=== PATIENT | female | born 1960 | race Caucasian/White ===

== ENCOUNTER 2019-02-08 14:14 | Outpatient (CLI) | payer BC ==
[~2019-02-08 14:14] MED LIST: Magnevist 469MG/ML 20 ML VIAL ONE
--- NOTE | 2019-02-08 16:07 | MRI ---
BRAIN MRI WITH AND WITHOUT CONTRAST: 02/08/19 COMPARISON: None. HISTORY: Occlusion/stenosis of the posterior cerebral artery, numbness of right body with tingling in right fo rearm and right hand. TECHNIQUE: Multiplanar and multisequence MR imaging of the brain is obtained with and without contrast. FINDINGS: The diffusion weighted imaging demonstrates no evidence for acute infarction in the axial gradient ec ho imaging demonstrates no evidence for intracranial hemorrhage. The visualized paranasal sinuses/mastoid air cells demonstrates normal signal intensity. Arterial anshu w voids at the axial level of the skull base appear unremarkable on the T2 weighted imaging. The postcontrast imaging demonstrates no abnormal enhancement within the brain parenchyma. No midline shift or mass effect. No ventricular enlargement. No abnormal white matter signal. Regiona l bone marrow signal intensity appears within normal limits. IMPRESSION: Unremarkable contrast enhanced brain MRI. POS: [facility]
== END 2019-02-08 14:15 | disposition home or self-care (01) ==
LOC: BICMRI 14:14
PROVIDERS: ATTEND Psychiatry & Neurology Neurology
DX: I66.29 Occlusion and stenosis of unspecified posterior cerebral artery (principal)
CPT/HCPCS: 70553; 82565; A9579

== ENCOUNTER 2019-07-19 13:02 | Inpatient (IN) | payer BC ==
[~2019-07-19 13:02] MED LIST changes: +Heparin 1,000 UNITS/ML VIAL ONE; -Magnevist 469MG/ML 20 ML VIAL ONE
[2019-07-19] MEDS ORDERED: Acetaminophen 500 MG TAB ONE (13:52)
[2019-07-19] MEDS ORDERED: Morphine 4 MG/ML VIAL ONE (13:52)
[2019-07-19] MEDS ORDERED: Vancomycin 1 GM/200 ML BAG ONE (13:52)
[2019-07-19] MEDS ORDERED: Cefepime 2 GM VIAL ONE (13:52)
[2019-07-19 13:59] LABS: #Basophils 0.1 thou/uL (0.0-0.2); #Lymphocytes 0.6 thou/uL (1.20-3.40); #Monocytes 0.3 thou/uL (0.11-0.59); #Neutrophils 10.8 thou/uL (1.40-6.50); %Eosinophils 0.1 % (0.0-10.0); %Lymphocytes 5.2 % (21.0-51.0); %Monocytes 2.5 % (0.0-10.0); %Neutrophils 91.2 % (42.0-75.0); Hemoglobin 15.7 g/dL (12.0-16.0); Mean Corpuscular Hemoglobin 30.1 pg (27.0-31.0); Mean Corpuscular Volume 94.1 fL (78.0-98.0); Mean Platelet Volume 8.9 fL (7.4-10.4); Platelet Count 137 thou/uL (130-400); RBC Distribution Width 11.9 % (11.5-14.5); Red Blood Cell (RBC) Count 5.21 mill/uL (4.20-5.40); White Blood Cell (WBC) Count 11.9 thou/uL (4.8-10.8)
[2019-07-19 14:22] LABS: ALT (SGPT) 70 U/L (8-55); AST (SGOT) 31 U/L (5-34); Albumin 4.1 g/dL (3.5-5.0); Alkaline Phosphatase 138 U/L (40-110); Anion Gap 18 mmol/L (10-20); BUN (Urea Nitrogen) 12 mg/dL (9.8-20.1); Bilirubin, Total 1.3 mg/dL (0.2-1.2); Calc. Creatinine Clearance 0 mL/min (70-130); Calcium 9.6 mg/dL (7.8-10.44); Carbon Dioxide 24 mmol/L (22-29); Chloride 96 mmol/L (98-107); Estimated GFR-MDRD 67; Globulin 3.4 g/dL (2.4-3.5); Glucose 251 mg/dL (70-105); Potassium 3.5 mmol/L (3.5-5.1); Protein, Total 7.5 g/dL (6.0-8.3); Sodium 134 mmol/L (136-145)
--- NOTE | 2019-07-19 14:31 | ULT ---
Exam: Left upper 70 venous ultrasound with Doppler HISTORY: Swelling and erythema. COMPARISON: None TECHNIQUE: Grayscale, color flow, Doppler imaging and spectral waveform analysis the left upper extre mity venous system FINDINGS: There is compressibility and flow in the internal jugular vein There is flow in the subclavian vein There is compressibility and flow in the axillary vein, brachial vein, basilic vein, cephalic vein, r adial vein and ulnar vein. There is soft tissue edema in the distal forearm. IMPRESSION: 1. No evidence of thrombus in the left upper extremity venous system 2. Soft tissue edema
[2019-07-19] MEDS ORDERED: HumaLOG 300 UNITS/3 ML VIAL SC PRN ×2 (15:48→16:40)
[2019-07-19] MEDS ORDERED: Dextrose 50% Abboject 50 ML SYRINGE SLOW IVP PRN (15:48)
[2019-07-19] MEDS ORDERED: Dextrose 5% in Water 1,000 ML IV PRN (15:48)
[2019-07-19] MEDS ORDERED: Ondansetron PF 4 MG/2 ML Vial IVP PRN (15:48)
[2019-07-19] MEDS ORDERED: Bisacodyl 5 MG TAB PO PRN (15:48)
[2019-07-19] MEDS ORDERED: Vancomycin 1 GM in Premix Bag 1 BAG IVPB SCH (16:00)
[2019-07-19] MEDS ORDERED: Senokot S 8.6-50 MG TAB PO PRN (16:40)
--- NOTE | 2019-07-19 17:00 | RAD ---
RIGHT ANKLE THREE VIEWS: 07/19/19 HISTORY: Swelling and fever, fall, right ankle pain. FINDINGS/IMPRESSION: The ankle mortise is maintained. No acute fracture or dislocation is seen. Degenerative changes are p resent. Soft tissue swelling is seen. POS: [facility]
[2019-07-19 17:26] LABS: Lactic Acid 1.9 mmol/L (0.5-2.2)
[2019-07-19] MEDS ORDERED: Fentanyl 100 MCG/2 ML VIAL SLOW IVP PRN (17:46)
[2019-07-19] MEDS ORDERED: Acetaminophen/Codeine 30-300mg Tablet PO PRN ×2 (17:48)
--- NOTE | 2019-07-19 17:49 | HP ---
PRIMARY CARE PHYSICIAN: Dr. Santana in [place]. CHIEF COMPLAINT: Cellulitis of the left upper extremity. HISTORY OF PRESENT ILLNESS: The patient is a 58-year-old female with a past medical history significant for left breast cancer with lymphedema, type 2 diabetes, who presents to the ER for the above complaint. The patient reports that she developed some redness and swelling to her left upper extremity approximately 3 days ago, which she recalls as Monday night. She went to see her PCP. She was started on doxycycline. Over the next several days, the arm did not improve. Despite medical therapy, she reports increased swelling, inflammation, and pain. She was febrile as well. During the course of the week, she also had mechanical fall in her bathroom and reports some right ankle pain. The patient denies any chest pain or heart palpitations. She denies any abdominal pain, nausea, vomiting, or diarrhea. She denies any dysuria. She admits to fevers. In the ER, the patient was found to have a lactic acid of 3.3. Her WBCs were 11.9. She came in febrile of 102.4, and she was tachycardic at 118. An ultrasound was performed of the left upper extremity. It was negative for DVT. The patient was started on IV fluids at 30 mg/kg, cefepime IV, vancomycin IV. She was given 1 g of Tylenol and some morphine for the pain. PAST MEDICAL HISTORY: Past medical history is significant for; 1. Left breast cancer stage IV, back in 1999 with a left breast mastectomy with subsequent lymphedema to the left upper extremity. 2. Diabetes type 2. 3. Hypertension. 4. Hypothyroidism. 5. Obstructive sleep apnea. PAST SURGICAL HISTORY: 1. Left breast mastectomy in 1999. 2. Hysterectomy. ALLERGIES: THE PATIENT REPORTS ALLERGIES TO PENICILLINS, AMOXICILLIN, CLINDAMYCIN, E-MYCIN, ERYTHROMYCIN. MEDICATIONS: 1. Metformin 500 mg p.o. b.i.d. 2. Venlafaxine 75 mg p.o. b.i.d. 3. Aspirin 81 mg p.o. daily. 4. Levothyroxine 100 mcg p.o. daily. 5. Valsartan 80 mg p.o. daily. SOCIAL HISTORY: The patient lives in [place] with her family. She denies any history of smoking, alcohol intake, or illicit drug use. She is retired. FAMILY HISTORY: Family history is noncontributory to this case. REVIEW OF SYSTEMS: All other ROS are negative unless noted in the HPI. PHYSICAL EXAMINATION: VITAL SIGNS: The patient presented to the ER of 101.3 Fahrenheit oral fever. Blood pressure 140/79, heart rate 115, respirations 20, 96% on room air. Pain scale is 8/10. CONSTITUTIONAL: The patient appears in no apparent distress. She is nontoxic. She appears comfortable. She is alert and oriented to person, place, and time. HEAD: Atraumatic, normocephalic. EYES: PERRLA. Extraocular muscles are intact. ENT: Nares are patent bilaterally. Oropharynx is clear. Uvula midline. No oral lesions. Mucous membranes are moist. NECK: Supple. Trachea is midline. No lymphadenopathy. RESPIRATORY/CHEST: Respirations are even and unlabored. Clear to auscultation bilaterally. No rhonchi, wheezes, or rales. CARDIOVASCULAR: The patient was tachycardic, regular rhythm. Heart sounds are normal. ABDOMEN: Soft, nontender, nondistended. No guarding. No peritoneal signs. BACK: Normal range of motion. No CVA tenderness. EXTREMITIES: Upper extremities; the left upper extremity was red, swollen, and warm to touch. No open lesions. No bruising. Palpable radial and ulnar pulses. Cap refill was brisk. Right upper extremity was normal. There are no open lesions. No swelling. No erythema. No bruising. Palpable radial and ulnar pulses. Cap refill is brisk. Lower extremities; right lower extremity had some bruising and swelling to the medial aspect of the right ankle. Mildly tender to touch. Palpable pedal pulses. Brisk cap refill. Right lower extremity decreased range of motion. Left lower extremity was normal exam. No bruising or swelling. No open lesions. No gross deformities. Palpable pedal pulses. Brisk cap refill. Skin intact. Full range of motion. NEURO: The patient was alert, oriented. Able to follow commands. Cranial nerves 2 through 12 intact. SKIN: Warm and dry and intact. LABORATORY DATA: Sodium 134, potassium 3.5, chloride 96, carbon dioxide was 24 , BUN 12, creatinine 0.87, GFR 67, glucose was 251. Her lactic acid was 3.3. She had some elevated LFTs. Her total bilirubin was 1.3, AST 31, ALT 70, alkaline phosphatase 138, albumin was 4.1. WBCs were 11.9, hemoglobin 15.7, hematocrit 49, platelets were 137. Ultrasound of the left upper extremity was negative for DVT. Right foot and right ankle x-rays are pending results. IMPRESSION AND PLAN: 1. Cellulitis of the left upper extremity. Admit to the telemetry floor inpatient status. Expected length of stay is at least two midnights. The patient presented tachycardic and febrile with failure on doxycycline outpatient therapy. Labs were done. Lactic acid of 3.3, white blood cells of 11.9. Ultrasound of the left upper extremity was negative for DVT. The patient was given IV fluid resuscitation 30 mL/kg in the ER and vanc and cefepime IV piggyback. We will continue vanc and cefepime broad spectrum antibiotic coverage. We will continue IV fluids at 70 mL/hr. We will consult Infectious Disease. We will order a CRP and ESR and an x-ray of the upper extremity. Blood cultures pending. 2. Sepsis, likely secondary to #1. 3. Elevated LFTs, appears mild. Have no baseline for the patient. Bilirubin was 1.3, ALT was 70, and alkaline phosphatase was 138. We will recheck those in the a.m. with a CMP. 4. Diabetes type 2. The patient reports taking metformin daily 500 mg b.i.d. We will start mild sliding scale and we will perform Accu-Cheks a.c. and h.s. 5. Lymphedema. The patient has a history of left breast cancer stage IV with mastectomy in 1999 with subsequent lymphedema of the left upper extremity. We will continue to follow. Right now, ultrasound of the arm is negative and x-rays are pending of the extremity. 6. Right ankle pain. The patient reported mechanical fall in her bathroom several days ago. She has bruising to the right ankle and she is nonweightbearing at this time. X-rays of the right foot and ankle are pending. We will consult Physical Therapy. 7. Lovenox for DVT prophylaxis. Pepcid for GI prophylaxis. The patient is a full code. The MPOA is Sienna Campbell, her daughter and her number is [phone]. Job ID: [id number] [facility]
[2019-07-19] MEDS: Sodium Chloride 0.9% 1,000 ML IV SCH (18:37)
[2019-07-19] MEDS: traMADol HCl 50 MG TAB PO PRN (18:38)
[2019-07-19] MEDS: metFORMIN 500 MG TAB PO SCH (18:38)
--- NOTE | 2019-07-19 19:11 | PDOC.EVN ---
Event Note - Event Note Event Note: I reviewed the chart. I also saw the patient and discussed plan of care with MELANIE Mathew Mccurdy. Briefly, 58 yo lady with PMHx L breast cancer s/p surgery presenting with LUE erythema x 1 week, was treated with doxycycline last 3 days. Pt was febrile in ER. Phys exam: S1, S2, reg. Lungs CTA. LUE cellulitis. A/P: 1. Sepsis 2. Cellulitis 3. DM2 Continue cefepime./vanc Consult ID Pain meds Insulin sliding scale Agree with H&P and plan of care as documented by MELANIE.
--- NOTE | 2019-07-19 19:12 | RAD ---
RIGHT FOOT THREE VIEWS: 07/19/19 HISTORY: Fall with pain in right leg. There are arthritic changes of the talonavicular joint and ankle joint. Deformity to the calcaneus is felt to be related to an old injury. I do not see any definite acute fracture line. Bones appear sli ghtly demineralized. There are arthritic changes of the great toe. No fractures are appreciated. IMPRESSION: Chronic changes. No acute process. POS: [facility]
[2019-07-19] MEDS: Morphine 2 MG/ML SYRINGE SLOW IVP PRN ×2 (19:48→23:26)
[2019-07-19] MEDS: Acetaminophen 325 MG TAB PO PRN (19:52)
[2019-07-19] MEDS: Famotidine 20 MG TAB PO SCH (21:00)
[2019-07-20] MEDS: traMADol HCl 50 MG TAB PO PRN ×3 (01:57→15:08)
[2019-07-20] MEDS: Cefepime 2 GM in Sodium Chloride 0.9% 100 ML IVPB SCH ×2 (01:59→14:47)
[2019-07-20] MEDS ORDERED: Vancomycin 1.5 GRAM/300 ML BAG 1.5 GM in Premix Bag 1 BAG IVPB SCH (03:00)
[2019-07-20] MEDS: Morphine 2 MG/ML SYRINGE SLOW IVP PRN ×2 (04:31→20:37)
[2019-07-20 05:01] LABS: Band 9 % (5-11); Hemoglobin 12.2 g/dL (12.0-16.0); Lymphocytes 5 % (21-51); MDiff Complete? YES; Mean Corpuscular HGB CONC 33.8 g/dL (32.0-36.0); Mean Corpuscular Hemoglobin 31.4 pg (27.0-31.0); Mean Corpuscular Volume 92.8 fL (78.0-98.0); Mean Platelet Volume 8.9 fL (7.4-10.4); Monocytes 5 % (0-10); Neutrophil 81 % (42-75); Platelet Count 115 thou/uL (130-400); Platelet Morphology Comment Appears Decreased; RBC Distribution Width 11.8 % (11.5-14.5); RBC Morphology Normal; Red Blood Cell (RBC) Count 3.89 mill/uL (4.20-5.40); White Blood Cell (WBC) Count 14.6 thou/uL (4.8-10.8)
[2019-07-20 05:12] LABS: ALT (SGPT) 47 U/L (8-55); AST (SGOT) 26 U/L (5-34); Albumin 3.1 g/dL (3.5-5.0); Alkaline Phosphatase 130 U/L (40-110); Anion Gap 16 mmol/L (10-20); BUN (Urea Nitrogen) 14 mg/dL (9.8-20.1); Calc. Creatinine Clearance 114 mL/min (70-130); Calcium 7.8 mg/dL (7.8-10.44); Chloride 102 mmol/L (98-107); Estimated GFR-MDRD 72; Globulin 2.7 g/dL (2.4-3.5); Glucose 170 mg/dL (70-105); Potassium 3.8 mmol/L (3.5-5.1); Protein, Total 5.8 g/dL (6.0-8.3); Sodium 132 mmol/L (136-145)
[2019-07-20 05:29] LABS: Carbon Dioxide 18 mmol/L (22-29)
[2019-07-20] MEDS: Levothyroxine Sodium 100 MCG TAB PO SCH (05:30)
[2019-07-20] MEDS: metFORMIN 500 MG TAB PO SCH ×2 (07:57→17:06)
[2019-07-20] MEDS: Famotidine 20 MG TAB PO SCH ×2 (07:57→20:37)
[2019-07-20] MEDS: Valsartan 80 MG TAB PO SCH (07:57)
[2019-07-20] MEDS: Venlafaxine HCl XR 75 MG CAP PO SCH (07:57)
[2019-07-20] MEDS: Aspirin 81 mg Enteric Coated Tablet PO SCH (07:58)
[2019-07-20] MEDS: Enoxaparin Sodium 40 MG/0.4 ML SYRINGE SC SCH (07:59)
[2019-07-20] MEDS: Acetaminophen 325 MG TAB PO PRN ×2 (08:12→15:13)
[2019-07-20] MEDS: Sodium Chloride 0.9% 1,000 ML IV SCH (11:54)
[2019-07-20 12:49] VITALS: BMI 35.3
[2019-07-20] MEDS ORDERED: cefTRIAXone\\ROCEPHIN 1 GM in Sodium Chloride 0.9% 100 ML IVPB SCH (15:00)
[2019-07-20] MEDS: cefTRIAXone\\ROCEPHIN 2 GM in Sodium Chloride 0.9% 100 ML IVPB SCH (15:13)
--- NOTE | 2019-07-20 16:00 | CON ---
DATE OF CONSULTATION: REASON FOR CONSULTATION: Cellulitis and bacteremia. HISTORY OF PRESENT ILLNESS: A 58-year-old with history of hypertension; type 2 diabetes; left-sided breast cancer, in remission, and has chronic lymph lymphedema, left upper extremity. The patient wears a sleeve, but for the past few months the sleeve has lost its function due to mechanical issues and she is not wearing anymore. She developed cellulitis of left upper extremity over the past few days before admission and had not taken any antimicrobials before admission other than doxycycline prescribed by her personal physician, which did not help. Initially , temperature 101.3, BP 140/79, pulse 115, and O2 saturation 96. She did not appear in distress and the exam showed erythema of left upper extremity with swelling and lymphedema, tenderness. Erythema extending from the wrist all the way to the mid arm, left side. Other findings on admission; white cell count 11.9, hemoglobin 15.7, platelets 137, and 91% neutrophils. Sodium 134, creatinine 0.87, bilirubin 1.3, ALT 70, and alkaline phosphatase 138. CRP was 30.56. Currently, Ms. Campbell is awake and alert, does not appear in distress, moderate pain in the left upper extremity. She also has pain in the right shoulder, which is quite intense with marked limitation of range of motion and pain in the right ankle which she developed within the period of this inflammatory process in the left upper extremity. No headaches. No shortness of breath, cough, or sputum production. No chest pain. No abdominal pain or diarrhea. No genitourinary symptoms. No neurological symptoms. MEDICAL HISTORY: 1. Breast cancer, in remission. 2. Hypertension. 3. Type 2 diabetes. 4. Lymphedema, left upper extremity. 5. Hypothyroidism. SURGICAL HISTORY: 1. Hysterectomy. 2. Mastectomy, left breast. 3. Tonsillectomy. ALLERGIES: AMOXICILLIN, CLINDAMYCIN, AND ERYTHROMYCIN. FAMILY HISTORY: Noncontributory. CURRENT MEDICATIONS: 1. P.r.n. medications. 2. Dulcolax. 3. Ceftriaxone. 4. Lovenox. 5. Pepcid. 6. Insulin. 7. Synthroid. 8. Glucophage. 9. Morphine. 10. Senokot. PHYSICAL EXAMINATION: VITAL SIGNS: T-max 102.6, blood pressure 113/55, pulse 109, respirations 18, and O2 saturation 96. SKIN: The area of circumferential erythema in the left upper extremity extending from the mid arm all the way to the wrist. She has erythema in the right ankle as well, and mild erythema in the right shoulder with marked limitation of range of motion. Peripheral IV access. The patient is voiding in the toilet. HEENT: Ocular movements conjugate. Oral cavity unremarkable. NECK: Supple. No jugular vein distention. Marked limitation in range of motion of right shoulder. There is lymphedema in the left upper extremity with inflammatory changes. Limitation of flexion and extension of the elbow. LUNGS: Symmetric and clear breath sounds. HEART: S1 and S2. Regular rate. No S3 or S4. ABDOMEN: Soft, not distended or tender. No ascites. No bladder distention. EXTREMITIES: Right ankle is tender markedly so with marked limitation in range of motion. The tenderness is more intense in the right lateral malleolus. There is tenderness on palpation of the right shoulder. There is lymphedema of left upper extremity. There is trace edema in the lower extremities. NEUROLOGIC: Nonfocal including cognitive function. LABORATORY DATA: Latest labs: White cell count 14.6, hemoglobin 12, and platelets 115 with 81% neutrophils. The latest chemistry with sodium 132 and creatinine 0.81. Microbiology with 2 sets of blood cultures with group B Streptococcus. IMAGING STUDIES: There is an ankle x-ray, which showed just chronic changes. ASSESSMENT: 1. Breast cancer in remission with prior left mastectomy and chronic lymphedema. 2. Cellulitis, left upper extremity with bacteremia secondary to group B Streptococcus, possible dissemination to the right ankle and the right shoulder. DISCUSSION: The main concern is that this is not just a simple case of cellulitis, but that the infection might have disseminated to the mentioned joints. We will MRI those joints and see if she will need Orthopedic Surgery consultation. Osteomyelitis is a definite possibility. This would markedly change the duration of therapy, so it is essential to rule out those possibilities. Meantime, switch her to Rocephin 2 g daily. Discontinue the remainder of antimicrobials. Job ID: [id number] [facility]
--- NOTE | 2019-07-20 18:15 | PDOC.HOSPP ---
- Subjective Encounter Date: 07/20/19 Encounter Time: 18:27 Subjective: Pt seen for followup re: sepsis. Feels better today. - Objective Vital Signs & Weight: Vital Signs (12 hours) Temp Pulse Resp BP BP BP Pulse Ox 07/20/19 15:07 99.9 F H 98 18 118/68 97 07/20/19 12:09 94/57 L 113/55 L 07/20/19 11:53 98.4 F 90 18 99/51 L 96 07/20/19 10:00 99.5 F 07/20/19 07:56 101.3 F H 109 H 18 115/60 96 Weight Admit Weight 212 lb Weight 212 lb 1.6 oz I&O: 07/19/19 07/20/19 07/21/19 06:59 06:59 06:59 Intake Total 1986 Output Total 400 Balance 1586 Result Diagrams: 07/20/19 04:35 07/20/19 04:35 Additional Labs: Accuchecks 07/20/19 07/20/19 07/20/19 17:04 11:14 06:01 POC Glucose 175 H 196 H 147 H 07/19/19 20:51 POC Glucose 226 H Labs and MARs reviewed by me EKG Reviewed by me: Yes (Tele: sinus tachycardia) Hospitalist ROS - Review of Systems Constitutional: reports: fever. denies: chills, sweats, weakness, malaise Cardiovascular: denies: chest pain, palpitations, orthopnea, paroxysmal noc. dyspnea, edema, light headedness Gastrointestinal: denies: nausea, vomiting, abdominal pain, diarrhea, constipation, melena, hematochezia Genitourinary: denies: dysuria, frequency, incontinence, hematuria, retention Skin: reports: rash Neurological: denies: weakness, numbness, incoordination, change in speech, confusion, seizures - Medication Medications: Active Medications Generic Name Dose Route Start Last Admin Trade Name Freq PRN Reason Stop Dose Admin Acetaminophen 650 mg 07/19/19 15:48 07/20/19 15:13 Tylenol PO 650 mg Q4H PRN Administration Headache/Fever/Mild Pain (1-3) Aspirin 81 mg 07/20/19 09:00 07/20/19 07:58 Ecotrin PO 81 mg DAILY ESPERANZA Administration Enoxaparin Sodium 40 mg 07/20/19 09:00 07/20/19 07:59 Lovenox SC 40 mg 0900 ESPERANZA Administration Famotidine 20 mg 07/19/19 21:00 07/20/19 07:57 Pepcid PO 20 mg BID ESPERANZA Administration Sodium Chloride 1,000 mls @ 70 mls/hr 07/19/19 16:00 07/20/19 11:54 Normal Saline 0.9% IV 1,000 mls .[id number] ESPERANZA Administration Ceftriaxone Sodium 2 gm/ 100 mls @ 200 mls/hr 07/20/19 15:00 07/20/19 15:13 Sodium Chloride IVPB 100 mls Q24HR ESPERANZA Administration Levothyroxine Sodium 100 mcg 07/20/19 06:00 07/20/19 05:30 Synthroid PO 100 mcg 0600 ESPERANZA Administration Metformin HCl 500 mg 07/19/19 17:00 07/20/19 17:06 Glucophage PO 500 mg BID-WM ESPERANZA Administration Morphine Sulfate 2 mg 07/19/19 15:47 07/20/19 04:31 Morphine SLOW IVP 2 mg Q4H PRN Administration Pain Tramadol HCl 50 mg 07/19/19 17:50 07/19/19 18:38 Ultram PO 50 mg Q6H PRN Administration Mild-Moderate Pain (1-5) Tramadol HCl 100 mg 07/19/19 17:50 07/20/19 15:08 Ultram PO 100 mg Q6H PRN Administration Moderate to Severe Pain (6-10) Valsartan 80 mg 07/20/19 09:00 07/20/19 07:57 Diovan PO 80 mg DAILY ESPERANZA Administration Venlafaxine HCl 75 mg 07/20/19 09:00 07/20/19 07:57 Effexor Xr PO 75 mg DAILY ESPERANZA Administration - Exam General - other findings: Obese Eye: anicteric sclera ENT: moist mucosa Neck: supple, symmetric, no thyromegaly, no lymphadenopathy Heart: no rubs Heart - other findings: S1, S2, reg, tachy Respiratory: CTAB, no wheezes, no rales, no ronchi Gastrointestinal: soft, non-tender, non-distended, normal bowel sounds Skin - other findings: LUE cellulitis improving Psychiatric: normal affect, normal behavior, A&O x 3 Hosp A/P (1) Sepsis Code(s): A41.9 - SEPSIS, UNSPECIFIED ORGANISM Status: Acute (2) Cellulitis Code(s): L03.90 - CELLULITIS, UNSPECIFIED Status: Acute (3) Bacteremia Code(s): R78.81 - BACTEREMIA Status: Acute (4) DM2 (diabetes mellitus, type 2) Status: Chronic (5) Hypothyroidism Code(s): E03.9 - HYPOTHYROIDISM, UNSPECIFIED Status: Chronic (6) HTN (hypertension) Code(s): I10 - ESSENTIAL (PRIMARY) HYPERTENSION Status: Chronic - Plan continue antibiotics, out of bed/ambulate Pt seen by ID service, switched to IV ceftriaxone. Continue synthroid. Await final blood cultures. Hyponatremia mild, likely asymptomatic. Continue accuchecks and change to moderate insulin sliding scale. HTN controlled.
[2019-07-21] MEDS: Sodium Chloride 0.9% 1,000 ML IV SCH ×2 (01:08→17:31)
[2019-07-21] MEDS: Morphine 2 MG/ML SYRINGE SLOW IVP PRN ×4 (01:12→20:32)
[2019-07-21] MEDS: Levothyroxine Sodium 100 MCG TAB PO SCH (05:16)
[2019-07-21 06:49] LABS: Band 23 % (5-11); Hemoglobin 11.6 g/dL (12.0-16.0); Lymphocytes 10 % (21-51); MDiff Complete? YES; Mean Corpuscular HGB CONC 33.6 g/dL (32.0-36.0); Mean Corpuscular Hemoglobin 31.3 pg (27.0-31.0); Mean Corpuscular Volume 92.9 fL (78.0-98.0); Mean Platelet Volume 8.9 fL (7.4-10.4); Monocytes 9 % (0-10); Neutrophil 58 % (42-75); Platelet Count 133 thou/uL (130-400); Platelet Morphology Comment Appears Adequate; White Blood Cell (WBC) Count 13.4 thou/uL (4.8-10.8)
[2019-07-21 06:50] LABS: Anion Gap 16 mmol/L (10-20); BUN (Urea Nitrogen) 8 mg/dL (9.8-20.1); Calc. Creatinine Clearance 138 mL/min (70-130); Calcium 8.1 mg/dL (7.8-10.44); Carbon Dioxide 21 mmol/L (22-29); Chloride 98 mmol/L (98-107); Estimated GFR-MDRD 90; Glucose 171 mg/dL (70-105); Potassium 3.2 mmol/L (3.5-5.1); Sodium 132 mmol/L (136-145)
[2019-07-21] MEDS: Valsartan 80 MG TAB PO SCH (08:05)
[2019-07-21] MEDS: metFORMIN 500 MG TAB PO SCH ×2 (08:05→17:31)
[2019-07-21] MEDS: Aspirin 81 mg Enteric Coated Tablet PO SCH (08:05)
[2019-07-21] MEDS: Venlafaxine HCl XR 75 MG CAP PO SCH (08:05)
[2019-07-21] MEDS: Enoxaparin Sodium 40 MG/0.4 ML SYRINGE SC SCH (08:05)
[2019-07-21] MEDS: Famotidine 20 MG TAB PO SCH ×2 (08:05→20:28)
[2019-07-21] MEDS: traMADol HCl 50 MG TAB PO PRN (12:25)
[2019-07-21] MEDS ORDERED: Magnevist 469MG/ML 20 ML VIAL ONE ×2 (13:16)
[2019-07-21] MEDS: cefTRIAXone\\ROCEPHIN 2 GM in Sodium Chloride 0.9% 100 ML IVPB SCH (14:59)
--- NOTE | 2019-07-21 15:14 | PDOC.HOSPP ---
- Subjective Encounter Date: 07/21/19 Encounter Time: 08:20 Subjective: Pt seen for followup re: sepsis. Feels worse than yesterday. - Objective Vital Signs & Weight: Vital Signs (12 hours) Temp Pulse Resp BP Pulse Ox 07/21/19 15:04 99.3 F 105 H 18 133/66 98 07/21/19 11:45 98.5 F 100 18 142/66 H 98 07/21/19 07:45 99.1 F 106 H 20 135/64 96 07/21/19 03:50 97 07/21/19 03:18 99.3 F 110 H 18 115/65 97 Weight Admit Weight 212 lb Weight 212 lb 9.6 oz I&O: 07/20/19 07/21/19 07/22/19 06:59 06:59 06:59 Intake Total 1986 9420 Output Total 400 1050 Balance 1586 8370 Result Diagrams: 07/21/19 06:26 07/21/19 06:26 Additional Labs: Accuchecks 07/21/19 07/21/19 07/20/19 11:58 05:41 20:53 POC Glucose 178 H 166 H 142 H 07/20/19 17:04 POC Glucose 175 H Labs and MARs reviewed by me EKG Reviewed by me: Yes (Tele: sinus tachycardia) Hospitalist ROS - Review of Systems Cardiovascular: denies: chest pain, palpitations, orthopnea, paroxysmal noc. dyspnea, edema, light headedness Gastrointestinal: denies: nausea, vomiting, abdominal pain, diarrhea, constipation, melena, hematochezia Musculoskeletal: reports: other (right ankle pain) - Medication Medications: Active Medications Generic Name Dose Route Start Last Admin Trade Name Freq PRN Reason Stop Dose Admin Acetaminophen 650 mg 07/19/19 15:48 07/20/19 15:13 Tylenol PO 650 mg Q4H PRN Administration Headache/Fever/Mild Pain (1-3) Aspirin 81 mg 07/20/19 09:00 07/21/19 08:05 Ecotrin PO 81 mg DAILY ESPERANZA Administration Enoxaparin Sodium 40 mg 07/20/19 09:00 07/21/19 08:05 Lovenox SC 40 mg 0900 ESPERANZA Administration Famotidine 20 mg 07/19/19 21:00 07/21/19 08:05 Pepcid PO 20 mg BID ESPERANZA Administration Sodium Chloride 1,000 mls @ 70 mls/hr 07/19/19 16:00 07/21/19 01:08 Normal Saline 0.9% IV 1,000 mls .[id number] ESPERANZA Administration Ceftriaxone Sodium 2 gm/ 100 mls @ 200 mls/hr 07/20/19 15:00 07/21/19 14:59 Sodium Chloride IVPB 100 mls Q24HR ESPERANZA Administration Levothyroxine Sodium 100 mcg 07/20/19 06:00 07/21/19 05:16 Synthroid PO 100 mcg 0600 ESPERANZA Administration Metformin HCl 500 mg 07/19/19 17:00 07/21/19 08:05 Glucophage PO 500 mg BID-WM ESPERANZA Administration Morphine Sulfate 2 mg 07/19/19 15:47 07/21/19 10:55 Morphine SLOW IVP 2 mg Q4H PRN Administration Pain Tramadol HCl 50 mg 07/19/19 17:50 07/19/19 18:38 Ultram PO 50 mg Q6H PRN Administration Mild-Moderate Pain (1-5) Tramadol HCl 100 mg 07/19/19 17:50 07/21/19 12:25 Ultram PO 100 mg Q6H PRN Administration Moderate to Severe Pain (6-10) Valsartan 80 mg 07/20/19 09:00 07/21/19 08:05 Diovan PO 80 mg DAILY ESPERANZA Administration Venlafaxine HCl 75 mg 07/20/19 09:00 07/21/19 08:05 Effexor Xr PO 75 mg DAILY ESPERANZA Administration - Exam General Appearance: awake alert Eye: anicteric sclera ENT: moist mucosa Neck: supple Heart: RRR Respiratory: CTAB, no wheezes Gastrointestinal: soft, non-tender Extremities: no cyanosis Psychiatric: normal affect, normal behavior Hosp A/P (1) Sepsis Code(s): A41.9 - SEPSIS, UNSPECIFIED ORGANISM Status: Acute (2) Cellulitis Code(s): L03.90 - CELLULITIS, UNSPECIFIED Status: Acute (3) Bacteremia Code(s): R78.81 - BACTEREMIA Status: Acute (4) DM2 (diabetes mellitus, type 2) Status: Chronic (5) Hypothyroidism Code(s): E03.9 - HYPOTHYROIDISM, UNSPECIFIED Status: Chronic (6) HTN (hypertension) Code(s): I10 - ESSENTIAL (PRIMARY) HYPERTENSION Status: Chronic - Plan Continue IV ceftriaxone. Pt is on synthroid. Await final blood and urine cultures. Replace potassium Continue accuchecks and change to moderate insulin sliding scale. HTN controlled.
[2019-07-21] MEDS ORDERED: Potassium Chloride 20 MEQ TAB PO SCH (15:15)
--- NOTE | 2019-07-21 16:33 | MRI ---
MR of the right ankle with and without contrast INDICATION: History of bacteremia of the right ankle with pain Contrast: 20 cc of MultiHance COMPARISON: Right ankle radiographs dated 07/19/2019 There is cellulitis involving the distal foreleg, hindfoot and dorsal foot without evidence of a drai nable fluid collection. No overt changes of osteomyelitis is evident. There is healed deformity involving the calcaneus. 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 There are chronic partial-thickne ss tears of the ATFL and PTFL . Syndesmotic ligaments appear intact. There is mild degenerative change of the medial tibiotalar joint. Sinus Tarsi appears within normal limits. The visualized flexo r and extensor tendons are normal appearing. IMPRESSION: Cellulitis of the distal right foreleg, hindfoot and dorsal foot.
--- NOTE | 2019-07-21 16:40 | MRI ---
MR of the right shoulder with and without IV contrast Indication history of bacteremia, right shoulder pain and loss of range of motion Contrast: 20 cc of MultiHance COMPARISON: None FINDINGS: Motion artifact limits image detail. There is increased joint effusion seen within the righ t AC joint with some surrounding periarticular soft tissue edema. There is a lobulated 1.5 x 1.8 cm fluid collection seen superior and slightly posterior to the AC joint suspicious for a periarticular abscess. Mild bone marrow edema is seen involving the acromial process and distal clavicle. There is a small intrasubstance low-grade partial thickness tear involving the mid supraspinatus, at the fo otprint, measuring 5 mm. No large full-thickness tear is evident. Small amount of fluid is seen in the subacromial subdeltoid bursa. There is mild surrounding cellulitis involving the superior aspect of the right shoulder joint. There is mild myositis involving portions of the right deltoid as well as the supraspinatus. No definite pathologically enlarged lymph nodes are evident. IMPRESSION: 1. Findings suspicious for septic arthritis of the right AC joint with a small periarticular abscess. There is mild surrounding myositis and cellulitis of the posterior superior right shoulder. 2. Small partial-thickness intrasubstance tear of the supraspinatus measuring up to 5 mm.
--- NOTE | 2019-07-21 23:45 | PRG ---
DATE OF SERVICE: 07/21/2019 SUBJECTIVE: Still quite a bit of pain in the right shoulder, not as much in the right ankle. No respiratory symptoms or abdominal pain. No diarrhea. OBJECTIVE: VITAL SIGNS: T-max 99.9 and she is 99.3 at the moment. BP 130/60, pulse 105, respirations 18, and O2 saturation 98. GENERAL: Does not appear in acute distress, still with marked limitation in range of motion of right shoulder. LUNGS: Symmetric clear breath sounds. HEART: S1 and S2. Regular rate. ABDOMEN: Soft, not distended or tender. EXTREMITIES: Right ankle with less erythema. LABORATORY DATA: White cell count 13.4, hemoglobin 11, platelets 133, and 23% bands. Creatinine 0.67. The ankle MRI showed just cellulitis. The shoulder MRI showed acromioclavicular joint septic arthritis with small periarticular abscess, mild surrounding myositis and cellulitis. The left upper extremity cellulitis has improved. ASSESSMENT AND DISCUSSION: Breast cancer in remission with prior mastectomy and chronic lymphedema, left upper extremity and cellulitis left upper extremity with bacteremia due to group B strep and right acromioclavicular joint infection and right ankle cellulitis, but not infection of the joint or bone. We will see how she does with antimicrobials may need I and D of the right shoulder area acromioclavicular joint depending on clinical progress. Job ID: [id number]
[2019-07-22 05:46] LABS: #Eosinphils 0.1 thou/uL (0.0-0.7); #Lymphocytes 1.1 thou/uL (1.20-3.40); #Monocytes 0.8 thou/uL (0.11-0.59); #Neutrophils 8.4 thou/uL (1.40-6.50); %Basophils 0.1 % (0.0-1.0); %Eosinophils 1.3 % (0.0-10.0); %Lymphocytes 10.1 % (21.0-51.0); %Monocytes 7.8 % (0.0-10.0); %Neutrophils 80.7 % (42.0-75.0); Hemoglobin 11.8 g/dL (12.0-16.0); Mean Corpuscular HGB CONC 32.6 g/dL (32.0-36.0); Mean Corpuscular Hemoglobin 30.9 pg (27.0-31.0); Mean Corpuscular Volume 94.8 fL (78.0-98.0); Mean Platelet Volume 8.9 fL (7.4-10.4); Platelet Count 168 thou/uL (130-400); RBC Distribution Width 11.8 % (11.5-14.5); Red Blood Cell (RBC) Count 3.82 mill/uL (4.20-5.40); White Blood Cell (WBC) Count 10.5 thou/uL (4.8-10.8)
[2019-07-22] MEDS: Levothyroxine Sodium 100 MCG TAB PO SCH (06:07)
[2019-07-22 06:09] LABS: Anion Gap 13 mmol/L (10-20); BUN (Urea Nitrogen) 6 mg/dL (9.8-20.1); Calc. Creatinine Clearance 144 mL/min (70-130); Calcium 8.4 mg/dL (7.8-10.44); Carbon Dioxide 27 mmol/L (22-29); Chloride 96 mmol/L (98-107); Estimated GFR-MDRD Greater than 90; Glucose 191 mg/dL (70-105); Sodium 133 mmol/L (136-145)
[2019-07-22 06:17] LABS: Potassium 2.9 mmol/L (3.5-5.1)
[2019-07-22] MEDS ORDERED: Potassium Chloride 20 MEQ TAB PO SCH (06:30)
[2019-07-22] MEDS: Sodium Chloride 0.9% 1,000 ML IV SCH ×2 (06:32→20:04)
[2019-07-22] MEDS: Aspirin 81 mg Enteric Coated Tablet PO SCH (07:53)
[2019-07-22] MEDS: Venlafaxine HCl XR 75 MG CAP PO SCH (07:53)
[2019-07-22] MEDS: metFORMIN 500 MG TAB PO SCH ×2 (07:53→15:50)
[2019-07-22] MEDS: Famotidine 20 MG TAB PO SCH ×2 (07:53→20:04)
[2019-07-22] MEDS: Enoxaparin Sodium 40 MG/0.4 ML SYRINGE SC SCH ×2 (07:54→16:46)
[2019-07-22] MEDS: Valsartan 80 MG TAB PO SCH (10:45)
[2019-07-22] MEDS: traMADol HCl 50 MG TAB PO PRN ×2 (10:48→17:19)
--- NOTE | 2019-07-22 14:53 | PDOC.HOSPP ---
- Subjective Encounter Date: 07/22/19 Encounter Time: 08:40 Subjective: Pt seen for followup re: sepsis. Feels better today. - Objective Vital Signs & Weight: Vital Signs (12 hours) Temp Pulse Resp BP Pulse Ox 07/22/19 10:56 98.4 F 97 20 146/81 H 96 07/22/19 08:00 98.4 F 102 H 18 133/79 95 Weight Admit Weight 212 lb Weight 212 lb 9.6 oz I&O: 07/21/19 07/22/19 07/23/19 06:59 06:59 06:59 Intake Total 9420 1640 Output Total 1050 1050 Balance 8370 590 Result Diagrams: 07/22/19 05:13 07/22/19 05:13 Additional Labs: Accuchecks 07/22/19 07/22/19 07/21/19 11:18 05:51 20:30 POC Glucose 194 H 212 H 214 H Hospitalist ROS - Review of Systems Constitutional: denies: fever, chills, sweats, weakness, malaise Cardiovascular: denies: chest pain, palpitations, orthopnea, paroxysmal noc. dyspnea, edema, light headedness Genitourinary: denies: dysuria, frequency, incontinence, hematuria, retention Skin: reports: rash - Medication Medications: Active Medications Generic Name Dose Route Start Last Admin Trade Name Freq PRN Reason Stop Dose Admin Acetaminophen 650 mg 07/19/19 15:48 07/20/19 15:13 Tylenol PO 650 mg Q4H PRN Administration Headache/Fever/Mild Pain (1-3) Aspirin 81 mg 07/20/19 09:00 07/22/19 07:53 Ecotrin PO 81 mg DAILY ESPERANZA Administration Enoxaparin Sodium 40 mg 07/20/19 09:00 07/22/19 07:54 Lovenox SC 40 mg 0900 ESPERANZA Administration Famotidine 20 mg 07/19/19 21:00 07/22/19 07:53 Pepcid PO 20 mg BID ESPERANZA Administration Sodium Chloride 1,000 mls @ 70 mls/hr 07/19/19 16:00 07/22/19 06:32 Normal Saline 0.9% IV 1,000 mls .[id number] ESPERANZA Administration Ceftriaxone Sodium 2 gm/ 100 mls @ 200 mls/hr 07/20/19 15:00 07/21/19 14:59 Sodium Chloride IVPB 100 mls Q24HR ESPERANZA Administration Levothyroxine Sodium 100 mcg 07/20/19 06:00 07/22/19 06:07 Synthroid PO 100 mcg 0600 ESPERANZA Administration Metformin HCl 500 mg 07/19/19 17:00 07/22/19 07:53 Glucophage PO 500 mg BID-WM ESPERANZA Administration Morphine Sulfate 2 mg 07/19/19 15:47 07/21/19 20:32 Morphine SLOW IVP 2 mg Q4H PRN Administration Pain Tramadol HCl 50 mg 07/19/19 17:50 07/19/19 18:38 Ultram PO 50 mg Q6H PRN Administration Mild-Moderate Pain (1-5) Tramadol HCl 100 mg 07/19/19 17:50 07/22/19 10:48 Ultram PO 100 mg Q6H PRN Administration Moderate to Severe Pain (6-10) Valsartan 80 mg 07/20/19 09:00 07/22/19 10:45 Diovan PO 80 mg DAILY ESPERANZA Administration Venlafaxine HCl 75 mg 07/20/19 09:00 07/22/19 07:53 Effexor Xr PO 75 mg DAILY ESPERANZA Administration - Exam General - other findings: Obese Eye: anicteric sclera ENT: moist mucosa Neck: supple, no thyromegaly Heart: RRR Respiratory: CTAB, no wheezes Gastrointestinal: soft, non-tender Extremities: no cyanosis Skin - other findings: rash improving Psychiatric: normal affect, normal behavior Hosp A/P (1) Sepsis Code(s): A41.9 - SEPSIS, UNSPECIFIED ORGANISM Status: Acute (2) Cellulitis Code(s): L03.90 - CELLULITIS, UNSPECIFIED Status: Acute (3) Bacteremia Code(s): R78.81 - BACTEREMIA Status: Acute (4) Hypothyroidism Code(s): E03.9 - HYPOTHYROIDISM, UNSPECIFIED Status: Chronic (5) DM2 (diabetes mellitus, type 2) Status: Chronic (6) HTN (hypertension) Code(s): I10 - ESSENTIAL (PRIMARY) HYPERTENSION Status: Chronic - Plan Continue IV ceftriaxone. Consult ortho for R septic shoulde Replace potassium Continue accuchecks and insulin sliding scale. HTN controlled.
[2019-07-22] MEDS: cefTRIAXone\\ROCEPHIN 2 GM in Sodium Chloride 0.9% 100 ML IVPB SCH (15:50)
--- NOTE | 2019-07-22 16:54 | PRG ---
DATE OF SERVICE: 07/22/2019 SUBJECTIVE: Ms. Campbell is feeling better. She has less pain. The right shoulder is still painful, but not as much. Right ankle is better. OBJECTIVE: VITAL SIGNS: She is afebrile. EXTREMITIES: The left upper extremity cellulitis is improving. LUNGS: Clear. HEART: S1 and S2. Regular rate. ABDOMEN: Soft, not distended. LABORATORY DATA: White cell count 10.5, hemoglobin 11.8, platelets 168. Creatinine 0.64. Microbiology, as noted before. ASSESSMENT AND DISCUSSION: Breast cancer in remission, prior mastectomy, chronic lymphedema, left upper extremity cellulitis with bacteremia, and right shoulder infection. We will continue Rocephin for 3 to 4 weeks, PICC line placement. Job ID: [id number]
[2019-07-22] MEDS: Morphine 2 MG/ML SYRINGE SLOW IVP PRN (21:43)
[2019-07-23] MEDS: traMADol HCl 50 MG TAB PO PRN ×3 (01:36→23:01)
[2019-07-23] MEDS: Levothyroxine Sodium 100 MCG TAB PO SCH (05:35)
[2019-07-23 05:41] LABS: Prothrombin Time 12.8 sec (12.0-14.7)
[2019-07-23] MEDS: Morphine 2 MG/ML SYRINGE SLOW IVP PRN ×3 (06:06→11:49)
[2019-07-23] MEDS: Venlafaxine HCl XR 75 MG CAP PO SCH (07:58)
[2019-07-23] MEDS: Valsartan 80 MG TAB PO SCH (07:59)
[2019-07-23] MEDS: Aspirin 81 mg Enteric Coated Tablet PO SCH (08:00)
[2019-07-23] MEDS: Famotidine 20 MG TAB PO SCH ×2 (08:00→21:51)
[2019-07-23] MEDS: metFORMIN 500 MG TAB PO SCH ×2 (08:00→16:26)
[2019-07-23] MEDS ORDERED: Morphine 2 MG/ML SYRINGE SLOW IVP PRN (08:20)
--- NOTE | 2019-07-23 12:17 | SPC ---
Ultrasound and Fluoroscopic guided right upper extremity PICC placement HISTORY: Septic arthritis. Patient needs long-term IV antibiotics. FINDINGS: Informed consent obtained prior to the procedure. An appropriate access site was determined with ultrasound guidance. The area was then meticulously pr epped and draped in usual sterile fashion. Skin overlying the right brachial vein anesthetized with 1% buffered lidocaine. Utilizing direct sono graphic guidance, vascular access is obtained via the right brachial vein, and an 0.018in guidewire was advanced to the cavoatrial junction. Intravascular length is calculated at 40 cm, and the PICC is cut accordingly. Needle is removed and replaced with a peel-away sheath. The PICC was advanced over the wire. Wire and peel-away sheath were removed. The tip of the catheter overlies the cavoatrial junction. The catheter was accessed and aspirated/flushed easily. Exposure data: 0.6 minutes of fluoroscopic time 1701 mGy centimeter squared FINDINGS: Technically successful placement of a 40 centimeter single lumen 5 [place] right upper extremity PICC line. IMPRESSION: Successful ultrasound guided placement of a right upper extremity PICC.
[2019-07-23] MEDS: cefTRIAXone\\ROCEPHIN 2 GM in Sodium Chloride 0.9% 100 ML IVPB SCH (14:24)
--- NOTE | 2019-07-23 15:04 | PDOC.HOSPP ---
- Subjective Encounter Date: 07/23/19 Encounter Time: 08:00 Subjective: Pt seen for followup re: sepsis. Feels better today. - Objective Vital Signs & Weight: Vital Signs (12 hours) Temp Pulse Resp BP Pulse Ox 07/23/19 07:53 98.2 F 94 16 114/70 94 L Weight Admit Weight 212 lb Weight 212 lb 9.6 oz I&O: 07/22/19 07/23/19 07/24/19 06:59 06:59 06:59 Intake Total 1640 1840 Output Total 1050 1200 Balance 590 640 Result Diagrams: 07/22/19 05:13 07/22/19 05:13 Additional Labs: Accuchecks 07/23/19 07/23/19 07/22/19 10:31 05:34 19:59 POC Glucose 200 H 193 H 253 H 07/22/19 16:21 POC Glucose 182 H Labs and MARs reviewed by ca Hospitalist ROS - Review of Systems Constitutional: denies: fever, chills, sweats, weakness, malaise Respiratory: denies: cough, shortness of breath, SOB with excertion, pleuritic pain, wheezing Gastrointestinal: denies: nausea, vomiting, abdominal pain, diarrhea, constipation, melena, hematochezia Musculoskeletal: reports: other (R ankle pain) - Medication Medications: Active Medications Generic Name Dose Route Start Last Admin Trade Name Freq PRN Reason Stop Dose Admin Acetaminophen 650 mg 07/19/19 15:48 07/20/19 15:13 Tylenol PO 650 mg Q4H PRN Administration Headache/Fever/Mild Pain (1-3) Aspirin 81 mg 07/20/19 09:00 07/23/19 08:00 Ecotrin PO 81 mg DAILY ESPERANZA Administration Enoxaparin Sodium 40 mg 07/20/19 09:00 07/22/19 16:46 Lovenox SC Not Given 0900 ESPERANZA Famotidine 20 mg 07/19/19 21:00 07/23/19 08:00 Pepcid PO 20 mg BID ESPERANZA Administration Sodium Chloride 1,000 mls @ 70 mls/hr 07/19/19 16:00 07/22/19 20:04 Normal Saline 0.9% IV 1,000 mls .[id number] ESPERANZA Administration Ceftriaxone Sodium 2 gm/ 100 mls @ 200 mls/hr 07/20/19 15:00 07/23/19 14:24 Sodium Chloride IVPB 100 mls Q24HR ESPERANZA Administration Levothyroxine Sodium 100 mcg 07/20/19 06:00 07/23/19 05:35 Synthroid PO 100 mcg 0600 ESPERANZA Administration Metformin HCl 500 mg 07/19/19 17:00 07/23/19 08:00 Glucophage PO 500 mg BID-WM ESPERANZA Administration Morphine Sulfate 2 mg 07/19/19 15:47 07/23/19 11:49 Morphine SLOW IVP 2 mg Q4H PRN Administration Pain Tramadol HCl 50 mg 07/19/19 17:50 07/23/19 07:58 Ultram PO 50 mg Q6H PRN Administration Mild-Moderate Pain (1-5) Tramadol HCl 100 mg 07/19/19 17:50 07/23/19 01:36 Ultram PO 100 mg Q6H PRN Administration Moderate to Severe Pain (6-10) Valsartan 80 mg 07/20/19 09:00 07/23/19 07:59 Diovan PO 80 mg DAILY ESPERANZA Administration Venlafaxine HCl 75 mg 07/20/19 09:00 07/23/19 07:58 Effexor Xr PO 75 mg DAILY ESPERANZA Administration - Exam General Appearance: NAD Eye: anicteric sclera ENT: moist mucosa Neck: supple Heart: RRR Respiratory: CTAB Gastrointestinal: soft, non-tender Extremities: no cyanosis Psychiatric: normal affect, normal behavior Hosp A/P (1) Sepsis Code(s): A41.9 - SEPSIS, UNSPECIFIED ORGANISM Status: Acute (2) Bacteremia Code(s): R78.81 - BACTEREMIA Status: Acute (3) Cellulitis Code(s): L03.90 - CELLULITIS, UNSPECIFIED Status: Acute (4) Hypothyroidism Code(s): E03.9 - HYPOTHYROIDISM, UNSPECIFIED Status: Chronic (5) DM2 (diabetes mellitus, type 2) Status: Chronic (6) HTN (hypertension) Code(s): I10 - ESSENTIAL (PRIMARY) HYPERTENSION Status: Chronic - Plan Continue IV ceftriaxone for 3-4 weeks. PICC line. Appreciate ortho service input. Check labs Continue accuchecks and insulin sliding scale. HTN controlled.
[2019-07-23 15:36] LABS: #Eosinphils 0.2 thou/uL (0.0-0.7); #Lymphocytes 1.3 thou/uL (1.20-3.40); #Monocytes 0.8 thou/uL (0.11-0.59); %Basophils 0.1 % (0.0-1.0); %Eosinophils 1.3 % (0.0-10.0); %Lymphocytes 8.2 % (21.0-51.0); %Monocytes 5.1 % (0.0-10.0); %Neutrophils 85.3 % (42.0-75.0); Hemoglobin 13.4 g/dL (12.0-16.0); Mean Corpuscular HGB CONC 33.3 g/dL (32.0-36.0); Mean Corpuscular Hemoglobin 30.7 pg (27.0-31.0); Mean Corpuscular Volume 92.1 fL (78.0-98.0); Mean Platelet Volume 8.5 fL (7.4-10.4); Platelet Count 277 thou/uL (130-400); RBC Distribution Width 11.8 % (11.5-14.5); Red Blood Cell (RBC) Count 4.37 mill/uL (4.20-5.40); White Blood Cell (WBC) Count 15.3 thou/uL (4.8-10.8)
[2019-07-23 15:42] LABS: Anion Gap 15 mmol/L (10-20); BUN (Urea Nitrogen) 8 mg/dL (9.8-20.1); Calc. Creatinine Clearance 142 mL/min (70-130); Calcium 8.7 mg/dL (7.8-10.44); Carbon Dioxide 30 mmol/L (22-29); Chloride 92 mmol/L (98-107); Estimated GFR-MDRD Greater than 90; Glucose 175 mg/dL (70-105); Potassium 3.1 mmol/L (3.5-5.1); Sodium 134 mmol/L (136-145)
[2019-07-23] MEDS: Sodium Chloride 0.9% 1,000 ML IV SCH (16:26)
[2019-07-23] MEDS: Potassium Chloride 20 MEQ TAB PO SCH ×2 (18:45→23:01)
[2019-07-24 05:49] LABS: Anion Gap 15 mmol/L (10-20); BUN (Urea Nitrogen) 7 mg/dL (9.8-20.1); Calc. Creatinine Clearance 156 mL/min (70-130); Calcium 8.5 mg/dL (7.8-10.44); Carbon Dioxide 26 mmol/L (22-29); Chloride 96 mmol/L (98-107); Estimated GFR-MDRD Greater than 90; Glucose 166 mg/dL (70-105); Potassium 3.6 mmol/L (3.5-5.1); Sodium 133 mmol/L (136-145)
[2019-07-24 05:51] LABS: Band 7 % (5-11); Eosinophils 1 % (0-10); Hemoglobin 11.8 g/dL (12.0-16.0); Hypochromia SLIGHT = 6-15 cells (100X) (0-5/hpf); Lymphocytes 6 % (21-51); MDiff Complete? YES; Mean Corpuscular Hemoglobin 30.6 pg (27.0-31.0); Mean Corpuscular Volume 92.8 fL (78.0-98.0); Monocytes 2 % (0-10); Neutrophil 84 % (42-75); Platelet Count 327 thou/uL (130-400); Platelet Morphology Comment Appears Adequate; RBC Distribution Width 11.7 % (11.5-14.5); Red Blood Cell (RBC) Count 3.86 mill/uL (4.20-5.40); White Blood Cell (WBC) Count 13.3 thou/uL (4.8-10.8)
[2019-07-24] MEDS: Levothyroxine Sodium 100 MCG TAB PO SCH (06:21)
[2019-07-24] MEDS: Sodium Chloride 0.9% 1,000 ML IV SCH ×2 (06:23→19:56)
[2019-07-24] MEDS: Famotidine 20 MG TAB PO SCH ×2 (08:19→19:55)
[2019-07-24] MEDS: Venlafaxine HCl XR 75 MG CAP PO SCH (08:19)
[2019-07-24] MEDS: Aspirin 81 mg Enteric Coated Tablet PO SCH (08:19)
[2019-07-24] MEDS: Enoxaparin Sodium 40 MG/0.4 ML SYRINGE SC SCH (08:19)
[2019-07-24] MEDS: metFORMIN 500 MG TAB PO SCH ×2 (08:19→16:07)
[2019-07-24] MEDS: Valsartan 80 MG TAB PO SCH (08:19)
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
[2019-07-24] MEDS: traMADol HCl 50 MG TAB PO PRN (09:08)
[2019-07-24] MEDS: Morphine 2 MG/ML SYRINGE SLOW IVP PRN ×2 (09:44→16:05)
--- NOTE | 2019-07-24 14:45 | PDOC.HOSPP ---
- Subjective Encounter Date: 07/24/19 Encounter Time: 08:40 Subjective: Pt seen for followup re: bacteremia. Feels better. Did not ambulate today or yesterday. - Objective Vital Signs & Weight: Vital Signs (12 hours) Temp Pulse Resp BP Pulse Ox 07/24/19 08:25 93 L 07/24/19 08:00 97.8 F 97 16 120/78 93 L Weight Admit Weight 212 lb Weight 212 lb 9.6 oz I&O: 07/23/19 07/24/19 07/25/19 06:59 06:59 06:59 Intake Total 1840 Output Total 1200 Balance 640 Result Diagrams: 07/24/19 05:15 07/24/19 05:15 Additional Labs: Accuchecks 07/24/19 07/24/19 07/23/19 12:03 04:22 19:53 POC Glucose 155 H 179 H 193 H 07/23/19 15:45 POC Glucose 169 H Labs and MARs reviewed by me Hospitalist ROS - Review of Systems Gastrointestinal: denies: nausea, vomiting, abdominal pain, diarrhea, constipation, melena, hematochezia Genitourinary: denies: dysuria, frequency, incontinence, hematuria, retention Skin: reports: rash - Medication Medications: Active Medications Generic Name Dose Route Start Last Admin Trade Name Freq PRN Reason Stop Dose Admin Acetaminophen 650 mg 07/19/19 15:48 07/20/19 15:13 Tylenol PO 650 mg Q4H PRN Administration Headache/Fever/Mild Pain (1-3) Aspirin 81 mg 07/20/19 09:00 07/24/19 08:19 Ecotrin PO 81 mg DAILY ESPERANZA Administration Enoxaparin Sodium 40 mg 07/20/19 09:00 07/24/19 08:19 Lovenox SC 40 mg 0900 ESPERANZA Administration Famotidine 20 mg 07/19/19 21:00 07/24/19 08:19 Pepcid PO 20 mg BID ESPERANZA Administration Sodium Chloride 1,000 mls @ 70 mls/hr 07/19/19 16:00 07/24/19 06:23 Normal Saline 0.9% IV 1,000 mls .[id number] ESPERANZA Administration Ceftriaxone Sodium 2 gm/ 100 mls @ 200 mls/hr 07/20/19 15:00 07/23/19 14:24 Sodium Chloride IVPB 100 mls Q24HR ESPERANZA Administration Levothyroxine Sodium 100 mcg 07/20/19 06:00 07/24/19 06:21 Synthroid PO 100 mcg 0600 ESPERANZA Administration Metformin HCl 500 mg 07/19/19 17:00 07/24/19 08:19 Glucophage PO 500 mg BID-WM ESPERANZA Administration Morphine Sulfate 2 mg 07/19/19 15:47 07/24/19 09:44 Morphine SLOW IVP 2 mg Q4H PRN Administration Pain Tramadol HCl 50 mg 07/19/19 17:50 07/23/19 07:58 Ultram PO 50 mg Q6H PRN Administration Mild-Moderate Pain (1-5) Tramadol HCl 100 mg 07/19/19 17:50 07/24/19 09:08 Ultram PO 100 mg Q6H PRN Administration Moderate to Severe Pain (6-10) Valsartan 80 mg 07/20/19 09:00 07/24/19 08:19 Diovan PO 80 mg DAILY ESPERANZA Administration Venlafaxine HCl 75 mg 07/20/19 09:00 07/24/19 08:19 Effexor Xr PO 75 mg DAILY ESPERANZA Administration - Exam General Appearance: NAD Eye: PERRL, anicteric sclera ENT: normocephalic atraumatic Neck: symmetric, no JVD Heart: RRR Respiratory: CTAB, no ronchi Gastrointestinal: soft, non-tender Skin - other findings: cellulitis improving Psychiatric: normal affect, normal behavior, A&O x 3 Hosp A/P (1) Bacteremia Code(s): R78.81 - BACTEREMIA Status: Acute (2) Cellulitis Code(s): L03.90 - CELLULITIS, UNSPECIFIED Status: Acute (3) Hypothyroidism Code(s): E03.9 - HYPOTHYROIDISM, UNSPECIFIED Status: Chronic (4) DM2 (diabetes mellitus, type 2) Status: Chronic (5) HTN (hypertension) Code(s): I10 - ESSENTIAL (PRIMARY) HYPERTENSION Status: Chronic (6) Sepsis Code(s): A41.9 - SEPSIS, UNSPECIFIED ORGANISM Status: Resolved - Plan continue antibiotics, out of bed/ambulate Continue IV ceftriaxone for 3-4 weeks. PICC line placed. Replace potassium. Continue accuchecks and insulin sliding scale. HTN controlled. Pt does not with go to a facility (Rehab, SNU etc). Also does not want HH. Worried about COVID. Wishes to go home and her will take care of her.
[2019-07-24] MEDS: cefTRIAXone\\ROCEPHIN 2 GM in Sodium Chloride 0.9% 100 ML IVPB SCH (16:00)
--- NOTE | 2019-07-24 16:43 | PRG ---
DATE OF SERVICE: 07/24/2019 SUBJECTIVE: Feeling better, was able to walk around today. Right shoulder is not bothering her as much. No shortness of breath. No abdominal pain or diarrhea. Voiding without difficulty. OBJECTIVE: VITAL SIGNS: She has been afebrile. Other vital signs are normal, O2 saturations 96%. EXTREMITIES: Right shoulder is less tender, better range of motion. LUNGS: Symmetric air entry. HEART: S1 and S2. Regular rate. Cellulitis has markedly improved. LABORATORY DATA: White cell count is at 13.3, hemoglobin 11.8, 84% neutrophils. Creatinine 0.59. ASSESSMENT AND DISCUSSION: Group B strep cellulitis with bacteremia with extension to shoulder. We will continue with IV Rocephin for a few weeks. Okay to discharge the patient whenever she is stable from the hospitalist standpoint, and I have already given orders to the Case Management. Job ID: [id number]
[2019-07-24] MEDS: HumaLOG 300 UNITS/3 ML VIAL SC PRN (18:13)
[2019-07-25] MEDS: HumaLOG 300 UNITS/3 ML VIAL SC PRN ×2 (06:08→11:03)
[2019-07-25] MEDS: Levothyroxine Sodium 100 MCG TAB PO SCH (06:08)
[2019-07-25 06:26] LABS: #Eosinphils 0.2 thou/uL (0.0-0.7); #Lymphocytes 0.9 thou/uL (1.20-3.40); #Monocytes 0.8 thou/uL (0.11-0.59); #Neutrophils 11.2 thou/uL (1.40-6.50); %Basophils 0.1 % (0.0-1.0); %Eosinophils 1.2 % (0.0-10.0); %Monocytes 5.9 % (0.0-10.0); %Neutrophils 85.7 % (42.0-75.0); Hemoglobin 12.3 g/dL (12.0-16.0); Mean Corpuscular HGB CONC 34.4 g/dL (32.0-36.0); Mean Corpuscular Hemoglobin 31.8 pg (27.0-31.0); Mean Corpuscular Volume 92.4 fL (78.0-98.0); Mean Platelet Volume 7.9 fL (7.4-10.4); Platelet Count 427 thou/uL (130-400); RBC Distribution Width 11.9 % (11.5-14.5); Red Blood Cell (RBC) Count 3.86 mill/uL (4.20-5.40); White Blood Cell (WBC) Count 13.1 thou/uL (4.8-10.8)
[2019-07-25 06:44] LABS: Anion Gap 17 mmol/L (10-20); BUN (Urea Nitrogen) 7 mg/dL (9.8-20.1); Calc. Creatinine Clearance 146 mL/min (70-130); Calcium 8.9 mg/dL (7.8-10.44); Carbon Dioxide 26 mmol/L (22-29); Chloride 93 mmol/L (98-107); Estimated GFR-MDRD Greater than 90; Glucose 183 mg/dL (70-105); Potassium 3.7 mmol/L (3.5-5.1); Sodium 132 mmol/L (136-145)
[2019-07-25] MEDS: Morphine 2 MG/ML SYRINGE SLOW IVP PRN (06:51)
[2019-07-25] MEDS: traMADol HCl 50 MG TAB PO PRN (08:09)
[2019-07-25] MEDS: Enoxaparin Sodium 40 MG/0.4 ML SYRINGE SC SCH (08:10)
[2019-07-25] MEDS: Famotidine 20 MG TAB PO SCH (08:11)
[2019-07-25] MEDS: metFORMIN 500 MG TAB PO SCH (08:11)
[2019-07-25] MEDS: Aspirin 81 mg Enteric Coated Tablet PO SCH (08:11)
[2019-07-25] MEDS ORDERED: Cyclobenzaprine 10 MG TAB PO PRN (10:10)
[2019-07-25] MEDS ORDERED: Cyclobenzaprine 10 MG TAB PO SCH (10:15)
[2019-07-25] MEDS: Sodium Chloride 0.9% 1,000 ML IV SCH (10:50)
[2019-07-25] MEDS: Valsartan 80 MG TAB PO SCH (11:00)
[2019-07-25] MEDS: Venlafaxine HCl XR 75 MG CAP PO SCH (11:01)
[2019-07-25 12:22] VITALS: BP 126/80; TEMP 98.4
--- NOTE | 2019-07-26 02:20 | DIS ---
DATE OF ADMISSION: 07/19/2019 DATE OF DISCHARGE: 07/25/2019 PRIMARY CARE PROVIDER: Dr. Alistair Santana. DISCHARGE DIAGNOSES: 1. Sepsis. 2. Sepsis secondary to cellulitis of the left upper extremity. 3. Bacteremia. 4. Hyponatremia. 5. Hypokalemia. 6. Septic arthritis of the right acromioclavicular joint. CONDITION OF THE PATIENT ON THE DAY OF DISCHARGE: Stable. I assessed Ms. Campbell on the day of discharge. She denies any chest pain or shortness of breath. Vital signs are stable. S1 and S2 are heard, regular. Lungs are clear to auscultation bilaterally. CONSULTATIONS DURING THIS HOSPITALIZATION: 1. Infectious Diseases, Dr. Cazares. 2. Orthopedic Surgery, Dr. Voss. DISCHARGE MEDICATIONS: 1. Acetaminophen p.r.n. 2. Zofran p.r.n. 3. Aspirin 81 mg daily. 4. Levothyroxine 100 mcg daily. 5. Metformin 500 mg two times a day. 6. Valsartan 40 mg daily. 7. Venlafaxine 75 mg two times a day. 8. Ceftriaxone 2 g IV q.24 hours. 9. Flexeril 10 mg three times a day as needed. 10. Tramadol 50 mg every 6 hours as needed. HOSPITAL COURSE: Ms. Campbell is a pleasant 58-year-old lady, who was admitted to [facility] on July 19, 2019, for sepsis secondary to cellulitis of left upper extremity. Blood cultures grew Streptococcus agalactiae group B, 2/2 blood cultures. She was seen by Infectious Disease Service. She was treated with intravenous antibiotics. She had also sustained a fall prior to this hospitalization. She had right ankle pain. MRI of the ankle showed cellulitis of the distal right foreleg, hind leg and dorsal foot. She also had MRI of the right upper extremity, which showed findings suspicious for septic arthritis of the right AC joint with a small periarticular abscess. She had a PICC line placed. She has been recommended antibiotics for a few weeks, and will follow up with Infectious Diseases specialist for management. She was seen by Therapy Services. She had difficulty ambulating because of the pain. She was recommended inpatient rehab. She refused inpatient rehab or custodial. She also refused home health. She was worried about the possibility of picking up COVID-19 virus in inpatient rehab or custodial or through home health workers. She reports that she has a support. She needs to get by at home. She is being discharged home in a stable condition. POST ACUTE CARE FOLLOWUP: With primary care provider in 3 days and with Infectious Diseases service, Dr. Cazares on July 25, 2019 at 1:30 p.m. DIET: Heart healthy and diabetic. ACTIVITY: As tolerated. DISCHARGE DESTINATION: Home. TIME SPENT: Total amount of time spent coordinating this discharge: 31 minutes. Job ID: [id number]
--- NOTE | 2019-07-27 06:42 | PQF ---
ABILIO IRVING DAVID [id number] [facility]-268 [id number] CLINICAL DOCUMENTATION CLARIFICATION FORM: POST DISCHARGE Addendum to original discharge summary date: ____ Late entry note date: __ DATE: 07/27/2019 ATTN:Bernard Morrison Please exercise your independent, professional judgment in responding to the clarification form. Clinical indicators are provided on the bottom of this form for your review Please check appropriate box(s): [ ] Septic Shock [ ] Shock Unspecified [ X ] Other diagnosis __SEPSIS SECONDARY TO CELLULITIS [ ] Unable to determine In addition, please specify: Present on Admission (POA): [ X ] Yes [ ] No [ ] Unable to determine For continuity of documentation, please document condition throughout progress notes and discharge summary. Thank You. CLINICAL INDICATORS - SIGNS / SYMPTOMS / LABS DS 07/24 "sepsis secondary to cellulitis of the left upper extremity" HP 07/18 "left upper extremity swelling" DS 07/24 "blood culture grew streptoccocus agalactiae group b" Vital signs Pulse: 07/1830=073 07/1960=940 07/2497=896 Vital signs BP: 07/18=99/55 07/19=94/57, 113/55 RISK FACTORS 58 years old female-HP 07/18 Breast cancer-HP 07/18 DM type 2-HP 07/18 Obesity-HP 07/18 HTN-HP 07/18 Hypothyroidism-07/18 Sepsis-HP 07/18 Cellulitis of RAAD-07/18 TREATMENTS: Maxipime 2gm IV-APR 24 Vancomycin 1gm IV-APR 24 IVF-APR 24 (This form is maintained as a part of the permanent medical record) 2014 [employer] All Rights Reserved [email or web address] [phone] [email or web address]
== END 2019-07-25 12:51 | disposition home or self-care (01) | DRG 872 ==
LOC: ERS 13:02 → 2NO 14:51 → T4-A 07-21 17:04
PROVIDERS: ADMIT Internal Medicine; ATTEND Internal Medicine
PROC: 02HV33Z Insertion of Infusion Device into Superior Vena Cava, Percutaneous Approach (ICD-10-PCS; principal; 2019-07-23)
PROC: B5181ZA Fluoroscopy of Superior Vena Cava using Low Osmolar Contrast, Guidance (ICD-10-PCS; 2019-07-23)
DX: A41.9 Sepsis, unspecified organism (principal); E87.1 Hypo-osmolality and hyponatremia; M00.9 Pyogenic arthritis, unspecified; L03.114 Cellulitis of left upper limb; I10 Essential (primary) hypertension; F32.9 Major depressive disorder, single episode, unspecified; E11.9 Type 2 diabetes mellitus without complications; G47.33 Obstructive sleep apnea (adult) (pediatric); I89.0 Lymphedema, not elsewhere classified; M25.571 Pain in right ankle and joints of right foot; B95.1 Streptococcus, group B, as the cause of diseases classified elsewhere; E66.9 Obesity, unspecified; E87.6 Hypokalemia; Z90.710 Acquired absence of both cervix and uterus; Z90.12 Acquired absence of left breast and nipple; Z88.1 Allergy status to other antibiotic agents; Z88.0 Allergy status to penicillin; Z79.84 Long term (current) use of oral hypoglycemic drugs; Z79.82 Long term (current) use of aspirin; Z79.899 Other long term (current) drug therapy; Z85.3 Personal history of malignant neoplasm of breast; Z91.81 History of falling; Z68.35 Body mass index [BMI] 35.0-35.9, adult
CPT/HCPCS: 36415; 36416; 36569; 36600; 80048; 80053; 83605; 85025; 85610; 85652; 86140; 87040; 87077; 87149; 87186; 96361; 96365; 96367; 96375; A9579; C1751; J0692; J0696; J1644; J1650; J2270; J3370; J3490

== ENCOUNTER 2019-08-13 12:28 | Outpatient (CLI) | payer BC ==
--- NOTE | 2019-08-13 13:25 | RAD ---
EXAM: 3 views of the right ankle HISTORY: Right ankle pain and infection in her arm that spread to her ankle COMPARISON: None FINDINGS: 3 views of the right ankle shows no evidence of acute fracture or dislocation. No osseous e rosions are seen. Moderate diffuse soft tissue swelling is seen. Surgical clips are seen posterior to the distal tibia/fibula. Joint space narrowing is seen in the ankle joint. Moderate degenerative c hanges are seen in the midfoot and hindfoot. IMPRESSION: No evidence of acute osseous abnormality.
== END 2019-08-13 12:29 | disposition home or self-care (01) ==
LOC: BICRAD 12:28
PROVIDERS: ATTEND Internal Medicine Infectious Disease
DX: M25.571 Pain in right ankle and joints of right foot (principal)